=== PATIENT | female | born 1985 | race American Indian/Alaskan Native ===

== ENCOUNTER 2016-05-24 15:00 | Outpatient (CLI) | payer BC ==
--- NOTE | 2016-05-24 17:20 | XRay Report ---
ROUTINE CHEST, TWO VIEWS: HISTORY: Cough. The trachea, heart, mediastinal contour, lung mcclure and bony thorax are unremarkable. IMPRESSION: Unremarkable chest x-ray.
== END 2016-05-24 15:01 | disposition home or self-care (01) ==
LOC: XRAY 15:00
PROVIDERS: ATTEND Advanced Practice Midwife
DX: O26.892 Other specified pregnancy related conditions, second trimester (principal); R05 Cough; Z3A.24 24 weeks gestation of pregnancy
CPT/HCPCS: 71020